=== PATIENT | female | born 1975 ===

== ENCOUNTER 2020-08-17 10:04 | Emergency (ER) | payer OTHER, SELFPAY ==
[2020-08-17 10:56] LABS: BASOPHIL 0.5 % (0-2); EOSINOPHIL 2.5 % (0-5); HCT 41.7 % (37.0-47.0); HGB 13.5 g/dl (12.5-16.0); LYMPHOCYTE 18.8 % (15-48); MCH 27.7 pg (25.0-31.0); MCHC 32.4 g/dL (32.0-36.0); MCV 85.6 fL (78.0-100.0); MONOCYTE 6.8 % (0-12); MPV 11.4 fL (6.0-9.5); NEUTROPHIL 70.2 % (41-80); NRBC 0; PLT 217 K/uL (150-400); RBC 4.87 M/uL (4.20-5.40); RDW 12.1 % (11.5-14.0); WBC 6.1 K/uL (4.0-10.5)
[2020-08-17 10:59] LABS: INR 1.06 (0.9-1.2); PROTHROMBIN TIME 13.1 SECONDS (11.4-13.6); PTT 26.5 SECONDS (22.2-34.7)
[2020-08-17 11:08] LABS: ALBUMIN 3.2 g/dL (3.4-5.0); BILIRUBIN - TOTAL 0.4 mg/dL (0.2-1.0); BUN/CREAT RATIO (CALC) 17.5 RATIO; CREATININE 0.57 mg/dL (0.51-0.95); GLOBULIN (CALCULATION) 3.6 g/dL; POTASSIUM 3.8 mmol/L (3.5-5.1); TOTAL PROTEIN 6.8 g/dL (6.4-8.2)
[2020-08-17 12:13] LABS: CKMB <0.5 ng/mL (0.0-3.6)
[2020-08-17] MEDS ORDERED: HYDROXYZINE HCL50 MG PO (12:46)
== END 2020-08-17 13:09 | disposition home or self-care (01) ==
LOC: FER 10:04
PROVIDERS: Emergency Medicine
DX: F41.9 Anxiety disorder, unspecified (principal); R07.89 Other chest pain; I10 Essential (primary) hypertension; E11.9 Type 2 diabetes mellitus without complications; R29.703 NIHSS score 3; Z86.73 Personal history of transient ischemic attack (TIA), and cerebral infarction without residual deficits
CPT/HCPCS: 36415; 70551; 71045; 80053; 82553; 84484; 85025; 85610; 85730; 93005; J2060

== ENCOUNTER 2021-03-19 10:26 | Emergency (ER) | payer OTHER ==
[~2021-03-19 10:26] MED LIST: HYDROXYZINE HCL50 MG PO
[2021-03-19] MEDS ORDERED: NEOMYCIN-POLYMY10 ML EARBOTH (10:57)
[2021-03-19] MEDS ORDERED: DIFLUCAN150 MG PO (10:58)
== END 2021-03-19 11:05 | disposition home or self-care (01) ==
LOC: FER 10:26
DX: H60.93 Unspecified otitis externa, bilateral (principal); F17.290 Nicotine dependence, other tobacco product, uncomplicated; E11.9 Type 2 diabetes mellitus without complications; I10 Essential (primary) hypertension
CPT/HCPCS: 99282

== ENCOUNTER 2021-04-02 10:41 | Emergency (ER) | payer OTHER ==
[~2021-04-02 10:41] MED LIST changes: +DIFLUCAN150 MG PO; +NEOMYCIN-POLYMY10 ML EARBOTH
[2021-04-02] MEDS ORDERED: MOBIC7.5 MG PO (11:19)
== END 2021-04-02 11:58 | disposition home or self-care (01) ==
LOC: FER 10:41
DX: S93.402A Sprain of unspecified ligament of left ankle, initial encounter (principal); M79.672 Pain in left foot; E11.9 Type 2 diabetes mellitus without complications; W01.0XXA Fall on same level from slipping, tripping and stumbling without subsequent striking against object, initial encounter
CPT/HCPCS: 73630

== ENCOUNTER 2021-04-21 14:55 | Emergency (ER) | payer OTHER ==
[~2021-04-21 14:55] MED LIST changes: +MOBIC7.5 MG PO
[2021-04-21 15:27] LABS: BILIRUBIN NEGATIVE (NEGATIVE); BLOOD NEGATIVE Ery/uL (NEGATIVE); CLARITY CLEAR (CLEAR); COLOR YELLOW (YELLOW); GLUCOSE (U) 3+ mg/dL (NORMAL); LEUKOCYTES NEGATIVE Leu/uL (NEGATIVE); NITRITE NEGATIVE (NEGATIVE); PROTEIN NEGATIVE (NEGATIVE); UROBILINOGEN 0.2 mg/dL (0.2-1.0)
[2021-04-21 16:50] LABS: BASOPHIL 0.7 % (0-2); EOSINOPHIL 2.3 % (0-5); HCT 46.3 % (37.0-47.0); LYMPHOCYTE 24.8 % (15-48); MCH 28.1 pg (25.0-31.0); MCHC 32.4 g/dL (32.0-36.0); MCV 86.7 fL (78.0-100.0); MONOCYTE 7.8 % (0-12); MPV 11.3 fL (6.0-9.5); NEUTROPHIL 63.6 % (41-80); NRBC 0; PLT 254 K/uL (150-400); RBC 5.34 M/uL (4.20-5.40); RDW 12.1 % (11.5-14.0); WBC 7.5 K/uL (4.0-10.5)
[2021-04-21 17:13] LABS: ALBUMIN 3.9 g/dL (3.4-5.0); BILIRUBIN - TOTAL 0.4 mg/dL (0.2-1.0); BUN/CREAT RATIO (CALC) 16.7 RATIO; CREATININE 0.54 mg/dL (0.51-0.95); GLOBULIN (CALCULATION) 4.4 g/dL; POTASSIUM 3.8 mmol/L (3.5-5.1); TOTAL PROTEIN 8.3 g/dL (6.4-8.2)
[2021-04-21] MEDS ORDERED: DIFLUCAN150 MG PO (18:49)
== END 2021-04-21 19:02 | disposition home or self-care (01) ==
LOC: FER 14:55
PROVIDERS: Emergency Medicine; Physician Assistant
DX: R10.32 Left lower quadrant pain (principal); R30.0 Dysuria; B37.2 Candidiasis of skin and nail; E11.9 Type 2 diabetes mellitus without complications; Z79.84 Long term (current) use of oral hypoglycemic drugs
CPT/HCPCS: 36415; 80053; 81003; 85025; 87210